=== PATIENT | male | born 1960 | race Caucasian/White ===

== ENCOUNTER 2017-06-30 16:45 | Emergency (ER) | payer MEDICAID | END 2017-06-30 18:54 | disposition home or self-care (01) | LOC: D.ER 16:45 | DX: L03.114 Cellulitis of left upper limb (principal); F17.200 Nicotine dependence, unspecified, uncomplicated ==

== ENCOUNTER 2017-08-11 09:47 | Emergency (ER) | payer MEDICAID | END 2017-08-11 11:07 | disposition home or self-care (01) | LOC: D.ER 09:47 | DX: S99.921A Unspecified injury of right foot, initial encounter (principal); W22.8XXA Striking against or struck by other objects, initial encounter; Y93.89 Activity, other specified; Y92.019 Unspecified place in single-family (private) house as the place of occurrence of the external cause; S91.331A Puncture wound without foreign body, right foot, initial encounter ==

== ENCOUNTER 2017-08-22 09:23 | Emergency (ER) | payer MEDICAID | END 2017-08-22 10:52 | disposition home or self-care (01) | LOC: D.ER 09:23 | DX: S92.321A Displaced fracture of second metatarsal bone, right foot, initial encounter for closed fracture (principal); X58.XXXA Exposure to other specified factors, initial encounter; Y93.89 Activity, other specified; Y92.029 Unspecified place in mobile home as the place of occurrence of the external cause; S91.331D Puncture wound without foreign body, right foot, subsequent encounter; L08.9 Local infection of the skin and subcutaneous tissue, unspecified; F17.200 Nicotine dependence, unspecified, uncomplicated ==

== ENCOUNTER 2017-12-24 10:53 | Emergency (ER) | payer MEDICAID | END 2017-12-24 13:00 | disposition home or self-care (01) | LOC: D.ER 10:53 | DX: S93.402A Sprain of unspecified ligament of left ankle, initial encounter (principal); W19.XXXA Unspecified fall, initial encounter; Y93.89 Activity, other specified; Y92.019 Unspecified place in single-family (private) house as the place of occurrence of the external cause; M25.472 Effusion, left ankle; F17.200 Nicotine dependence, unspecified, uncomplicated ==

== ENCOUNTER 2018-03-04 08:45 | Emergency (ER) | payer MEDICAID | END 2018-03-04 09:53 | disposition home or self-care (01) | LOC: D.ER 08:45 | DX: S93.601A Unspecified sprain of right foot, initial encounter (principal); X58.XXXA Exposure to other specified factors, initial encounter; Y93.89 Activity, other specified; Y92.89 Other specified places as the place of occurrence of the external cause; F17.200 Nicotine dependence, unspecified, uncomplicated ==

== ENCOUNTER 2018-11-12 13:32 | Emergency (ER) | payer MEDICAID ==
[~2018-11-12] VITALS: Ht 185.4 cm; Wt 71.4 kg
[2018-11-12 13:40] VITALS: Ht 185.4 cm; Wt 71.4 kg
[2018-11-12] MEDS ORDERED: HYDROCODON-ACE1 EAC7 PO (13:42)
[2018-11-12] MEDS ORDERED: VOLTAREN75 MG PO (15:28)
[2018-11-12] MEDS ORDERED: BACLOFEN20 M1 PO (15:28)
[2018-11-12 16:18] VITALS: BP 123/95
== END 2018-11-12 16:14 | disposition home or self-care (01) ==
LOC: D.ER 13:32
DX: M25.561 Pain in right knee (principal); M79.18 Myalgia, other site; R07.81 Pleurodynia; F17.200 Nicotine dependence, unspecified, uncomplicated

== ENCOUNTER 2019-08-15 09:16 | Emergency (ER) | payer MEDICAID ==
[~2019-08-15] VITALS: Ht 185.4 cm; Wt 65.9 kg
[~2019-08-15 09:16] MED LIST: BACLOFEN20 M1 PO; HYDROCODON-ACE1 EAC7 PO; VOLTAREN75 MG PO
[2019-08-15 09:19] VITALS: Ht 185.4 cm; Wt 65.9 kg
[2019-08-15] MEDS ORDERED: VOLTAREN75 MG PO (10:27)
[2019-08-15 10:35] VITALS: BP 141/79
== END 2019-08-15 10:36 | disposition home or self-care (01) ==
LOC: D.ER 09:16
DX: M25.561 Pain in right knee (principal); F17.210 Nicotine dependence, cigarettes, uncomplicated

== ENCOUNTER 2019-09-02 16:32 | Emergency (ER) | payer MEDICAID ==
[~2019-09-02] VITALS: Ht 185.4 cm; Wt 65.9 kg
[2019-09-02 16:43] VITALS: Ht 185.4 cm; Wt 65.9 kg
[2019-09-02 18:09] VITALS: BP 136/88
== END 2019-09-02 18:10 | disposition home or self-care (01) ==
LOC: D.ER 16:32
DX: S84.91XA Injury of unspecified nerve at lower leg level, right leg, initial encounter (principal); X58.XXXA Exposure to other specified factors, initial encounter; R51 Headache; F17.210 Nicotine dependence, cigarettes, uncomplicated

== ENCOUNTER 2020-01-31 12:27 | Emergency (ER) | payer MEDICAID ==
[2019-09-02 16:43] VITALS: Ht 185.4 cm; Wt 59.1 kg
[~2020-01-31] VITALS: Ht 185.4 cm; Wt 59.1 kg
[2020-01-31 13:00] VITALS: BP 134/87
[2020-01-31 13:12] LABS: CALC OSMOLALITY 280 mosm/kg (275-300); CALCIUM 8.8 mg/dL (8.5-10.1); CARBON DIOXIDE 25.2 mmol/L (21.0-32.0); CHLORIDE - SERUM 105 mmol/L (98-107); CREATININE - SERUM 1.4 mg/dL (0.6-1.3); GLUCOSE 100 mg/dL (74-106); POTASSIUM - SERUM 3.6 mmol/L (3.5-5.1); SODIUM 140 mmol/L (136-145); UREA NITROGEN 17 mg/dL (7-18); eGFR NON AFRICAN AMERICAN 55 mL/min (90-120)
[2020-01-31 13:13] LABS: INR 1.11 (0.85-1.17); PROTIME 14.3 SECONDS (11.6-15.0)
[2020-01-31 13:14] LABS: APTT 36.4 SECONDS (22.8-39.4)
[2020-01-31 13:18] LABS: BASOPHILS 0.7 % (0-2); EOSINOPHILS 1.7 % (0-7); HEMATOCRIT 39.6 % (42.0-54.0); HEMOGLOBIN 13.3 g/dL (13.5-17.5); IMMATURE GRANULOCYTES 0.3 % (0-5); LYMPHOCYTES 25.1 % (15-50); MCH 28.8 pg (26.0-34.0); MCHC 33.6 g/dL (31.0-37.0); MCV 85.7 fL (80.0-100.0); MEAN PLATELET VOLUME 9.1 fL (7.4-10.4); MONOCYTES 8.3 % (2-11); NEUTROPHILS 63.9 % (40-80); PLATELET COUNT 412 10x3/uL (130-400); RBC 4.62 10x6/uL (4.20-6.10); RDW 12.6 % (11.5-14.5); WBC 6.1 10x3/uL (4.8-10.8)
[2020-01-31 13:28] LABS: ALBUMIN 3.7 g/dL (3.4-5.0); ALKALINE PHOSPHATASE 100 U/L (30-120); ALT (SGPT) 22 U/L (10-68); BILIRUBIN - TOTAL 0.56 mg/dL (0.2-1.3); CKMB 5.7 U/L (0.0-3.6); CREATINE KINASE 306 UL (21-232); PROTEIN - SERUM 7.4 g/dL (6.4-8.2); TROPONIN-I < 0.017 ng/mL (0.000-0.060)
== END 2020-01-31 13:25 | disposition left against medical advice (07) ==
LOC: D.ER 12:27
PROVIDERS: Family Medicine
DX: R07.9 Chest pain, unspecified (principal); F41.9 Anxiety disorder, unspecified; M54.9 Dorsalgia, unspecified; F17.210 Nicotine dependence, cigarettes, uncomplicated

== ENCOUNTER 2020-06-14 20:30 | Emergency (ER) | payer MEDICAID ==
[~2020-06-14] VITALS: Ht 185.4 cm; Wt 65.9 kg
[2020-06-14 20:37] VITALS: Ht 185.4 cm; Wt 65.9 kg
[2020-06-14] MEDS ORDERED: AUGMENTIN 875-11 TAB PO (20:49)
[2020-06-14 21:11] VITALS: BP 132/80
== END 2020-06-14 21:11 | disposition home or self-care (01) ==
LOC: D.ER 20:30
DX: L03.115 Cellulitis of right lower limb (principal); R07.9 Chest pain, unspecified

== ENCOUNTER 2020-06-26 17:31 | Emergency (ER) | payer MEDICAID ==
[~2020-06-26] VITALS: Ht 185.4 cm; Wt 59.1 kg
[~2020-06-26 17:31] MED LIST changes: +AUGMENTIN 875-11 TAB PO
[2020-06-26 17:33] VITALS: BP 143/88; Ht 185.4 cm; Wt 59.1 kg
== END 2020-06-27 | disposition left against medical advice (07) ==
LOC: D.ER 17:31
DX: S91.311A Laceration without foreign body, right foot, initial encounter (principal); W45.8XXA Other foreign body or object entering through skin, initial encounter; Y93.9 Activity, unspecified; Y92.9 Unspecified place or not applicable; Z53.29 Procedure and treatment not carried out because of patient's decision for other reasons

== ENCOUNTER 2020-07-08 15:41 | Inpatient (IN) | payer MEDICAID ==
[~2020-07-08] VITALS: Ht 185.4 cm; Wt 62.3 kg
[2020-07-08 16:57] LABS: APTT 36.7 SECONDS (22.8-39.4); CALC OSMOLALITY 268 mosm/kg (275-300); CARBON DIOXIDE 28.9 mmol/L (21.0-32.0); CHLORIDE - SERUM 102 mmol/L (98-107); CREATININE - SERUM 1.4 mg/dL (0.6-1.3); GLUCOSE 84 mg/dL (74-106); INR 1.04 (0.85-1.17); POTASSIUM - SERUM 3.6 mmol/L (3.5-5.1); PROTIME 13.5 SECONDS (11.6-15.0); SODIUM 133 mmol/L (136-145); UREA NITROGEN 25 mg/dL (7-18); eGFR NON AFRICAN AMERICAN 55 mL/min (90-120)
[2020-07-08 17:05] LABS: BASOPHILS 0.8 % (0-2); HEMATOCRIT 35.8 % (42.0-54.0); HEMOGLOBIN 11.6 g/dL (13.5-17.5); IMMATURE GRANULOCYTES 0.2 % (0-5); LYMPHOCYTES 39.3 % (15-50); MCH 27.9 pg (26.0-34.0); MCHC 32.4 g/dL (31.0-37.0); MCV 86.1 fL (80.0-100.0); NEUTROPHILS 42.7 % (40-80); PLATELET COUNT 433 10x3/uL (130-400); RBC 4.16 10x6/uL (4.20-6.10); RDW 13.8 % (11.5-14.5)
[2020-07-08 17:14] LABS: ALBUMIN 3.5 g/dL (3.4-5.0); ALKALINE PHOSPHATASE 84 U/L (30-120); ALT (SGPT) 18 U/L (10-68); BILIRUBIN - TOTAL 0.27 mg/dL (0.2-1.3); CKMB 4.7 U/L (0.0-3.6); CREATINE KINASE 258 UL (21-232); MAGNESIUM - SERUM 2.2 mg/dL (1.8-2.4); PROTEIN - SERUM 6.9 g/dL (6.4-8.2); TROPONIN-I < 0.017 ng/mL (0.000-0.060)
[2020-07-08 17:23] VITALS: BP 134/85
--- NOTE | 2020-07-08 17:57 | NUR ---
URINE TO LAB
[2020-07-08 18:06] LABS: UDS - AMPHET POSITIVE QUAL (NEGATIVE); UDS - BARB NEGATIVE QUAL (NEGATIVE); UDS - BENZO NEGATIVE QUAL (NEGATIVE); UDS - COCAINE POSITIVE QUAL (NEGATIVE); UDS - OPIATE NEGATIVE QUAL (NEGATIVE); UDS - PCP NEGATIVE QUAL (NEGATIVE); UDS - THC NEGATIVE QUAL (NEGATIVE)
[2020-07-08 18:14] LABS: BILIRUBIN NEGATIVE (NEGATIVE); GLUCOSE NEGATIVE (NEGATIVE); KETONE NEGATIVE (NEGATIVE); NITRITE NEGATIVE (NEGATIVE); UROBILINOGEN NORMAL (NORMAL)
[2020-07-08 18:15] LABS: BACTERIA FEW /hpf (NEGATIVE); RED CELLS - URINE 0-5 /hpf (0-5); WHITE CELLS - URINE 25-50 /hpf (NEGATIVE)
--- NOTE | 2020-07-08 19:30 | NUR ---
REPORT GIVEN TO IZA
--- NOTE | 2020-07-08 19:30 | NUR ---
NS 0.9% INFUSING AT 999 ML/H. 100 ML REMAINING ON SHIFT CHANGE
[2020-07-08 19:45] VITALS: BP 133/90
--- NOTE | 2020-07-08 20:30 | NUR ---
WHEN NURSE WENT INTO ROOM, PATIENT DENIED ANY SUICIDAL INTENT OR THOUGHTS AND REFUSED TO ANSWER THE QUESTIONS. INFORMED HIS NURSE, AND PATIENT WAS ADMITTED TO FLOOR FOR MEDICAL ISSUES.
--- NOTE | 2020-07-08 21:13 | NUR ---
PATIENT ARRIVED TO FLOOR. PATIENT IS ALERT AND ORIENTED, RESTING COMFORTABLY IN BED. RESPIRATIONS ARE EVEN AND UNLABORED. PATIENT PLACED ON TELEMETRY. NEEDS MET. CALL LIGHT WITHIN REACH. WILL CPOC.
[2020-07-08 21:33] VITALS: BP 113/70; Ht 185.4 cm; Wt 62.3 kg
[2020-07-08 23:40] LABS: CKMB 3.7 U/L (0.0-3.6); CREATINE KINASE 208 UL (21-232); TROPONIN-I < 0.017 ng/mL (0.000-0.060)
[2020-07-09] VITALS: BP 119/63
[2020-07-09 04:00] VITALS: BP 106/71
[2020-07-09 05:22] LABS: EOSINOPHILS 7.7 % (0-7); HEMATOCRIT 36.1 % (42.0-54.0); HEMOGLOBIN 11.6 g/dL (13.5-17.5); IMMATURE GRANULOCYTES 0.2 % (0-5); LYMPHOCYTES 39.7 % (15-50); MCHC 32.1 g/dL (31.0-37.0); MEAN PLATELET VOLUME 9.2 fL (7.4-10.4); MONOCYTES 9.6 % (2-11); NEUTROPHILS 41.8 % (40-80); PLATELET COUNT 421 10x3/uL (130-400); RBC 4.15 10x6/uL (4.20-6.10); RDW 13.8 % (11.5-14.5); WBC 6.2 10x3/uL (4.8-10.8)
[2020-07-09 06:02] LABS: ALBUMIN 3.1 g/dL (3.4-5.0); ALKALINE PHOSPHATASE 76 U/L (30-120); ALT (SGPT) 18 U/L (10-68); BILIRUBIN - TOTAL 0.37 mg/dL (0.2-1.3); CALC OSMOLALITY 292 mosm/kg (275-300); CALCIUM 7.9 mg/dL (8.5-10.1); CHLORIDE - SERUM 109 mmol/L (98-107); CKMB 3.2 U/L (0.0-3.6); CREATINE KINASE 182 UL (21-232); CREATININE - SERUM 1.2 mg/dL (0.6-1.3); GLUCOSE 88 mg/dL (74-106); PROTEIN - SERUM 6.3 g/dL (6.4-8.2); SODIUM 146 mmol/L (136-145); UREA NITROGEN 20 mg/dL (7-18); eGFR NON AFRICAN AMERICAN 66 mL/min (90-120)
[2020-07-09 06:25] LABS: POTASSIUM - SERUM 4.6 mmol/L (3.5-5.1); TROPONIN-I < 0.017 ng/mL (0.000-0.060)
--- NOTE | 2020-07-09 10:48 | NUR ---
HAS LEFT FOR NM FOR STRESS TEST. WILL CONT. PLAN OF CARE.
[2020-07-09 11:25] VITALS: BP 118/81
[2020-07-09 18:23] LABS: CKMB 2.5 U/L (0.0-3.6); CREATINE KINASE 133 UL (21-232); TROPONIN-I < 0.017 ng/mL (0.000-0.060)
--- NOTE | 2020-07-09 19:44 | NUR ---
RECEIVED BEDSIDE REPORT. PATIENT IS ALERT AND ORIENTEED, RESTING COMFORTABLY IN BED. RESPIRATIONS ARE EVEN AND UNLABORED. NO S/S OF DISTRESS. NO C/O PAIN. CALL LIGHT WITHIN REACH. WILL CPOC.
[2020-07-09 20:00] VITALS: BP 105/59
[2020-07-10 08:00] VITALS: BP 113/67
[2020-07-10 11:00] VITALS: BP 127/65
[2020-07-10 15:00] VITALS: BP 121/69
[2020-07-10 18:31] VITALS: BP 109/70
--- NOTE | 2020-07-10 18:52 | NUR ---
PER DR PAGE PATIENT CAN GO HOME STRESS TEST IS NORMAL.
--- NOTE | 2020-07-10 18:55 | NUR ---
PAGED CURT CHAIDEZ APN. REGARDING PATIENT POSSIBLY BEING DISCHARGED. PATIENT STRESS TEST NEGATIVE AND PATIENT IS INSISTANT THAT HE BE DISCHARGED.
--- NOTE | 2020-07-10 19:32 | NUR ---
PATIENT DEMANDING TO LEAVE. EXPLAINED TO PATIENT THAT WE WERE WAITING FOR DR. PAGE TO READ HIS STRESS TEST. DR. PAGE CALLED STRESS TEST NEGATIVE AND PATIENT WAS OK FOR DISCHARGE. PAGED CURT RUIZ APN. HE WAS ON HIS WAY TO THE HOSPITAL AND WOULD WRITE DISCHARGE ORDER. EXPLAINED TO PATIENT HE BECAME UPSET CALLED SISTER. RESPIRATORY WENT INTO ROOM PATIENT WAS NO LONGER THERE ALL PERSONAL BELONGINGS GONE. CALLED GENERAL SALES MANAGER REGARDING PATIENT LEAVING AMA AND THAT UNSURE IF PATIENT REMOVED IV HIMSELF OR IF HE STILL HAS IT. CALLED SECURITY. I WENT TO ER TO IF BY CHANCE PATIENT IS STILL HERE. PATIENT WAS NOT. I SAW CURT RUIZ APN. INFORMED HIM THAT PATIENT LEFT. COMPLETED AMA PAPERWORK.
--- NOTE | 2020-07-10 19:46 | NUR ---
[facility] [place] [facility] NOTIF[place].
== END 2020-07-10 19:48 | disposition left against medical advice (07) | DRG 313 ==
LOC: D.ER 15:41 → D.M2 18:45 → OBSVTIME 18:46 → D.M2 18:46
PROVIDERS: Family Medicine; ADMIT Legal Medicine; ATTEND Legal Medicine
DX: R07.9 Chest pain, unspecified (principal); J90 Pleural effusion, not elsewhere classified; F14.90 Cocaine use, unspecified, uncomplicated; F15.90 Other stimulant use, unspecified, uncomplicated; I45.10 Unspecified right bundle-branch block; J43.9 Emphysema, unspecified; N28.9 Disorder of kidney and ureter, unspecified; Z72.0 Tobacco use